=== PATIENT | male | born 1960 | race African-American/Black ===

== ENCOUNTER → 2018-12-04 | Outpatient (CLI) | payer OTHER ==
[~2018-12-04] VITALS: Ht 177.8 cm; Wt 98.1 kg
[~2018-12-04] MED LIST: ASPIRIN 81M81 MG/TA2 PO; ASPIRIN E.C. 8181 MG PO; CALCIUM 600/VIT1 CAP PO; COLACE 100100 MG/CAP PO; FERRO-TIME325 MG PO; GLUCOSAMINE500 M1 PO; IRON325 MG PO; MICARDIS HCT 251 TAB PO; NEURONTIN300 MG/CAP PO; NORVASC 5MG5 MG/TAB PO; PRAVACHOL 20MG20 MG PO; PRAVACHOL 40MG40 MG PO; TENORMIN 5050 MG/TAB PO; TYLENOL 8 HR PO
[2018-12-04 06:33] VITALS: BP 144/83; PULSE 73
[2018-12-04 07:52] VITALS: BP 124/71; PULSE 88
[2018-12-04 07:53] VITALS: BP 129/73; PULSE 92
[2018-12-04 07:54] VITALS: BP 126/75; PULSE 93
[2018-12-04 07:55] VITALS: BP 127/66; PULSE 87
== END ==
LOC: COL.CARD 06:14
DX: R07.9 Chest pain, unspecified (principal)
CPT/HCPCS: A9500; J2785

== ENCOUNTER → 2023-05-23 | Outpatient (CLI) | payer OTHER ==
[~2023-05-23] MED LIST changes: +MULTI VITAMINS1 TAB PO; +PYRIDIUM 100MG100 MG PO; +STOOL SOFTENER100 M2 PO
== END ==
LOC: MHCPAIN 11:42
DX: M47.812 Spondylosis without myelopathy or radiculopathy, cervical region (principal); M96.1 Postlaminectomy syndrome, not elsewhere classified; M54.2 Cervicalgia
CPT/HCPCS: J0665; J1100; J2250; J3010